=== PATIENT | female | born 1965 | race Caucasian/White ===

== ENCOUNTER → 2020-10-02 08:22 | Outpatient (BNVA) | payer OTHER, SELFPAY | PROVIDERS: Visit Provider Specialist | DX: G35 Multiple sclerosis (principal); F17.210 Nicotine dependence, cigarettes, uncomplicated | CPT/HCPCS: 99214 ==

== ENCOUNTER 2020-10-04 06:47 | Emergency (ER) | payer OTHER, SELFPAY ==
[2020-10-04 06:59] VITALS: BP 154/93; PULSE 78; RESP 18; TEMP 36.7; O2SAT 98; BMI 22.0
[2020-10-04 07:04] VITALS: BP 162/93; PULSE 78; RESP 18; O2SAT 98
--- NOTE | 2020-10-04 07:06 | W.ED.PSYCH ---
HPI - Psych General: Chief Complaint: Extremity Injury, Lower Stated Complaint: R FOOT/TOE INJURY Time Seen by Provider: 10/04/20 07:23 Course Vital Signs: Vital signs: Vital Signs Temperature 98.0 F 10/04/20 06:59 Pulse Rate 78 10/04/20 07:04 Respiratory Rate 18 10/04/20 07:04 Blood Pressure 162/93 10/04/20 07:04 Pulse Oximetry 98 10/04/20 07:04 Discharge Plan Discharge Prescriptions: No Action Chantix 1 mg tablet 1 mg PO BID Qty: 56 RF: 3 metoprolol succinate 50 mg tablet extended release 24 hr 50 mg PO QDAY Qty: 90 RF: 3 modafinil 200 mg tablet 200 mg PO BID Qty: 60 RF: 5 Tecfidera 240 mg capsule,delayed release(DR/EC) 240 mg PO BID Qty: 180 RF: 3 Coding Level of Care Code ED Compositor Apprentice for Marie Edwards
--- NOTE | 2020-10-04 07:27 | ED_ITS ---
HPI - Extremity Problem General: Chief complaint: Extremity Injury, Lower Stated complaint: R FOOT/TOE INJURY Time Seen by Provider: 10/04/20 07:23 History of Present Illness: HPI Narrative: Patient is a 54-year-old female comes to the ED with an injury to right foot. Patient says on Thursday evening a wheelbarrow fell on her right foot great toe. She now has some pain and swelling as well. She also has blue nail, but denies any bleeding after injury or pain with nail bed. Patient rates her pain a 9 out of 10. Patient says at 4 AM this morning she took some tramadol and it helped her pain. She says she has been elevating and icing her foot as well. Associated symptoms: Deny chest pain, fever(s) or rash Review of Systems Const: Denies: fever(s), chills or fatigue Eyes: Denies: change in vision or eye discomfort ENMT: Denies: throat pain, odynophagia, nasal discharge or nasal congestion Card: Denies: chest pain, palpitations, edema, swelling of feet/ankles, dyspnea on exertion or orthopnea Resp: Denies: dyspnea, productive cough or non-productive cough GI: Denies: abdominal pain, nausea, vomiting, diarrhea, constipation or hematochezia : Denies: flank pain, dysuria or hematuria Musc: Reports: extremity pain (right foot great toe); Denies: neck pain, back pain or extremity swelling Skin/Breast: Denies: rash or new lesions Neuro: Denies: headache(s), numbness in extremities or weakness in extremities Physical Exam Const: COMMON NORMALS: no acute distress, patient oriented x3, healthy appearing and alert GENERAL APPEARANCE: cooperative and comfortable HENMT: COMMON NORMALS: normocephalic HEAD & SCALP: normocephalic MOUTH: Normal oral and palatal mucosa present THROAT: posterior oropharynx normal and uvula midline Neck/C-Spine: COMMON NORMALS: supple GENERAL: Yes normal visual inspection Resp: COMMON NORMALS: normal respiratory effort, No retractions, No use of accessory muscles and clear to auscultation bilaterally AUSCULTATION: clear to auscultation bilaterally Cardio: COMMON NORMALS: regular rate, regular rhythm, S1 normal heart sound present, S2 normal heart sound present, No gallops present (Cardio), No clicks present (Cardio), No murmurs present (Cardio) and Peripheral pulses 2+ throughout RATE: regular rate RHYTHM: regular rhythm HEART SOUNDS: S1 normal heart sound present and S2 normal heart sound present PERIPHERAL PULSES: Peripheral pulses 2+ throughout GI: COMMON NORMALS: Normal to inspection, nondistended, normoactive bowel sounds present, Soft to palpation, non-tender and no masses PALPATION: Yes Soft to palpation : COMMON NORMALS: Yes no CVA tenderness BLADDER/KIDNEY EXAM: Yes no CVA tenderness Back/Pelvis: COMMON NORMALS: no CVA tenderness Extremity: GENERAL: Yes normal exam except as noted RIGHT LOWER EXTREMITY: Yes foot & digits (Great toe) Right foot and digits: Yes inspection (Swelling of toe. Nail is blue but intact. ), Yes palpation (Tenderness to palpation over the middle phalanges.), Yes ROM (Limited due to pain) and Yes neurovascular exam (Intact) Neuro: COMMON NORMALS: patient oriented x3 and moves all extremities SENSORIUM/ORIENTATION: Yes alert Skin: GENERAL SKIN EXAM: dry skin Course Vital Signs: Vital signs: Vital Signs Temperature 16 F L 10/04/20 08:41 Pulse Rate 73 10/04/20 08:41 Respiratory Rate 16 10/04/20 08:41 Blood Pressure 129/73 10/04/20 08:41 Pulse Oximetry 98 10/04/20 08:41 MDM - Extremity (Nontraumatic) MDM Narrative: Medical decision making narrative: Patient is a 54-year-old female comes to the ED with right toe injury. Crush injury. The patient has bruising and swelling of right great toe. Nailbed is intact. X-ray of right great toe showed a nondisplaced distal phalange fracture of the first digit. Patient was put in a stiff soled shoe and given crutches. She was discharged with a written prescription for tramadol for pain. She is told to follow-up with her PCP in 7 to 10 days for reevaluation. Return ED precautions given. Patient understood and agree with plan. Imaging Data^: Xray Ortho: Attestation: I personally reviewed and interpreted this imaging study as follows: My impression: X-ray right foot?great toe-nondisplaced distal phalanges fracture of first digit. Radiologist's impression: [address] [place] [address] XRay Report Signed Patient: Nishi Smiley Unit #: [id number] : 1965 Age/Sex: 54 / F ADM Date: 10/04/20 Loc: ER Room/Bed: Attending Dr: Ordering Provider/Ordering MD: Khanh Johnson Date of Service: 10/04/20 Procedure(s): XR foot RT min 3V* [id number] Accession Number(s): [id number] Report Number: [id number] PROCEDURE INFORMATION: Exam: XR Right Foot Exam date and time: 10/04/2020 7:30 AM Age: 54 years old Clinical indication: Injury or trauma; Other: Crush injury; Blunt trauma and crushing; Injury date: 10/02/2020; Patient HX: PT had something heavy fall on right foot. C/O throbbing pain RT foot; RT great toe nail black. ; Additional info: Crush injury to 1st digit TECHNIQUE: Imaging protocol: XR Right foot. Views: 3 or more views. COMPARISON: No relevant prior studies available. FINDINGS: Bones/joints: Normal. Soft tissues: Normal. XR/XR foot RT min 3V* [id number] IMPRESSION: No acute findings. Dictated By: Wenceslao Jane Signed By: Wenceslao Jane Signed Date/Time: 10/04/20811 DD/ 08 Discharge Plan Discharge Patient Disposition: Home Clinical Impression: Fracture of distal phalanx of great toe Qualifiers: Encounter type: initial encounter Fracture type: closed Fracture alignment: nondisplaced Laterality: right Qualified Code(s): S92.424A - Nondisplaced fracture of distal phalanx of right great toe, initial encounter for closed fracture Condition: Stable Prescriptions: No Action Chantix 1 mg tablet 1 mg PO BID Qty: 56 RF: 3 metoprolol succinate 50 mg tablet extended release 24 hr 50 mg PO QDAY Qty: 90 RF: 3 modafinil 200 mg tablet 200 mg PO BID Qty: 60 RF: 5 Tecfidera 240 mg capsule,delayed release(DR/EC) 240 mg PO BID Qty: 180 RF: 3 Discharge Orders: Discharge ED (Routine); Ordered 10/04/20 Ordered By: Khanh Johnson Discharge Diet: Regular Discharge Activity: Limit activity as instructed and Use walker/crutches as instructed Patient Instructions: Tramadol (By mouth), Fractures - Phalanx (Toe) Activity Restrictions/Additional Instructions: Follow-up with medical provider as directed in 7 to 10 days for reevaluation. Wear stiff sole shoe when ambulating you can use crutches to help with ambulation as well. Rest ice and elevate right foot. Take medications as prescribed. Return to the ER or your medical provider if condition worsens. Please read and understand discharge instructions. If any questions, please ask. Coding Level of Care Code ED Certified Flex Endoscope Reprocessor for Binhg Fwd Exam Comprehensive
[2020-10-04 08:04] VITALS: BP 129/82; PULSE 62; RESP 16; O2SAT 96
[2020-10-04 08:41] VITALS: BP 129/73; PULSE 73; RESP 16; TEMP -8.8; TEMP 16; O2SAT 98
== END 2020-10-04 08:37 | disposition home or self-care (01) ==
PROVIDERS: Emergency Provider Physician Assistant
DX: S92.424A Nondisplaced fracture of distal phalanx of right great toe, initial encounter for closed fracture (principal); W20.8XXA Other cause of strike by thrown, projected or falling object, initial encounter
CPT/HCPCS: 73630; 99283; E0114

== ENCOUNTER 2020-10-17 10:39 | Outpatient (CLI) | payer OTHER, SELFPAY ==
--- NOTE | 2020-10-17 11:00 | MR_ITS ---
WS: [id number] MRI HEAD WITH CONTRAST TECHNIQUE: Sagittal T1, T2 axial, T2 axial FLAIR, axial susceptibility weighted imaging, axial diffus ion weighted images, and coronal T2 images were obtained. Pre and post-T1 axial and post T1 coronal i mages. ADC and FSPGR images. CLINICAL INFORMATION: G35 - Multiple sclerosis COMPARISON: MRI 7 . Additional prior MRIs 2017, 2012, 2011, 2008. FINDINGS: No evidence of restricted diffusion to suggest acute ischemia. Ventricular system and basal cisterns are patent. Moderate patchy supratentorial white matter changes consistent with history of demyelinat ing disease. Number and distribution of lesions is stable since 2019. No evidence of disease progress ion. No significant infratentorial disease. Mild T1 hypointense lesion load. No abnormal gadolinium enhancement to indicate active disease. No en hancing lesions. Mild parenchymal volume loss is stable. No significant corpus callosal atrophy. Mini mal low-lying cerebellar tonsils. Normal fourth ventricle. Normal dural venous sinuses. Normal optic chiasm and pituitary infundibulum. Normal cavernous sinuses and Meckel's cave. MR/MR head wo/w con [id number] IMPRESSION: 1. No significant changes compared to 2019. 2. Moderate patchy supratentorial white matter changes consistent with demyeli nating disease. No evidence of new or progressed disease. 3. No enhancing lesions to indicate active disease. 4. Mild T1 hypointense lesion load. 5. Mild parenchymal volume loss. No significant corpus callosum atrophy. 6. Minimal low-lying cerebellar tonsils. Normal fourth ventricle.
[2020-10-17] MEDS: gadobenate dimeglumine 20 mL vial IV (11:42)
== END 2020-10-17 10:40 | disposition home or self-care (01) ==
PROVIDERS: Visit Provider Specialist
DX: G35 Multiple sclerosis (principal)
CPT/HCPCS: 70553; A9577

== ENCOUNTER → 2023-02-23 15:32 | Outpatient (BNVA) | payer OTHER, SELFPAY | PROVIDERS: Referring Provider Specialist; Visit Provider Podiatrist Foot & Ankle Surgery | DX: S86.012A Strain of left Achilles tendon, initial encounter; X50.9XXA Other and unspecified overexertion or strenuous movements or postures, initial encounter; M76.62 Achilles tendinitis, left leg | CPT/HCPCS: 73610 ==

== ENCOUNTER 2023-02-26 11:05 | Outpatient (CLI) | payer OTHER, SELFPAY | END 2023-02-26 11:06 | disposition home or self-care (01) | LOC: SPT 11:06 | PROVIDERS: Visit Provider Podiatrist Foot & Ankle Surgery | DX: Z46.89 Encounter for fitting and adjustment of other specified devices (principal); S99.919D Unspecified injury of unspecified ankle, subsequent encounter; X58.XXXD Exposure to other specified factors, subsequent encounter | CPT/HCPCS: L4361 ==

== ENCOUNTER 2023-03-04 08:02 | Outpatient (CLI) | payer OTHER, SELFPAY ==
[2023-03-04 08:17] LABS: Basophils # 0.1 10^3/uL (0.0-0.1); Basophils % 0.6 %; Eosinophils # 0.3 10^3/uL (0.0-0.8); Eosinophils % 3.6 %; Hematocrit 41.2 % (36-47); Lymphocytes # 2.8 10^3/uL (0.8-4.8); Lymphocytes % 35.4 %; Mean Corpuscular HGB Conc 32.5 g/dL (30-55); Mean Corpuscular Hemoglobin 30.4 pg (27-33); Mean Corpuscular Volume 93.4 fl (85-98); Mean Platelet Volume 10.4 fL (7.4-10.4); Monocytes # 0.5 10^3/uL (0.2-0.9); Neutrophils # 4.28 10^3/uL (1.8-7.7); Neutrophils % 53.9 %; Nucleated Red Blood Cells % 0 %; Platelet Count 252 10^3/cmm (157-399); Red Blood Count 4.41 10^6/uL (3.85-5.65); Red Cell Distribution Width 14.6 % (12.1-15.1); White Blood Count 7.96 10^3/uL (3.29-11.43)
[2023-03-04 08:48] LABS: Alanine Aminotransferase 21 U/L (0-33); Albumin Level 4.5 g/dL (3.5-5.2); Alkaline Phosphatase 129 U/L (35-105); Anion Gap 14.4 (5-19); Aspartate Amino Transferase 17 U/L (0-32); Blood Urea Nitrogen 16 mg/dL (6-20); Calcium 9.9 mg/dL (8.5-10.5); Carbon Dioxide 28 mmol/L (22-29); Chloride 100 mmol/L (98-107); Globulin 3.2 g/dL (1.3-4.6); Glomerular Filtration Rate 85.6 mL/min (90-130); Glucose 125 mg/dL (65-115); Osmolality Calculated 289 mOsm/kg (285-295); Potassium 4.4 mmol/L (3.5-5.1); Sodium 138 mmol/L (136-145); Thyroid Stimulating Hormone 3.19 uIU/mL (0.27-4.20); Total Bilirubin 0.2 mg/dL (0.15-1.2); Total Protein 7.7 g/dL (6.6-8.7)
== END 2023-03-04 08:03 | disposition home or self-care (01) ==
PROVIDERS: Visit Provider Specialist
DX: G47.419 Narcolepsy without cataplexy (principal); F17.200 Nicotine dependence, unspecified, uncomplicated; G35 Multiple sclerosis
CPT/HCPCS: 36415; 80053; 84443; 85025

== ENCOUNTER 2023-03-18 07:01 | Outpatient (CLI) | payer OTHER, SELFPAY ==
--- NOTE | 2023-03-18 07:15 | MR_ITS ---
WS: [id number] EXAMINATION: MR ankle LT wo con* [id number] ORDER DATE: 03/18/2023 7:13 AM COMPARISON: None. HISTORY: Achilles tendon tear CONTRAST: None. TECHNIQUE: Axial proton density fat sat, axial T1, sagittal proton density, sagittal STIR, coronal T2 fat sat, and coronal T1 sequences performed. After contrast, axial T1 fat sat, coronal T1 fat sat, and sagittal T1 fat sat were performed. FINDINGS: Diffuse fusiform enlargement of the mid Achilles tendon compatible with tendinopathy. Small amount of surrounding fluid or edema compatible with peritendinitis. Tiny interstitial tear involving the dors al Achilles tendon extending over approximately 6 mm with slight irregularity of the overlying tendon . Achilles insertion is normal in appearance. Normal bone marrow signal in the calcaneus. Normal talar dome. Normal medial and lateral malleolus. A TF appears intact. Deltoid ligament appears intact. Small joint effusion. Normal peroneal tendon sheath. The extensor and flexor compartment tendons are normal in appearance. Normal plantar fascia. Base of the fifth metatarsal is normal. Normal cuboid. IMPRESSION: 1. Diffuse fusiform enlargement of the mid Achilles tendon compatible with tendinopathy. Surrounding fluid and edema compatible with peritendinitis. 2. Tiny interstitial tear involving the dorsal Achilles tendon extending over approximately 6 mm wit h slight irregularity involving the dorsal tendon surface. 3. Normal Achilles insertion. 4. No other acute findings.
== END 2023-03-18 07:02 | disposition home or self-care (01) ==
LOC: RAD 07:01
PROVIDERS: Visit Provider Podiatrist Foot & Ankle Surgery
DX: S86.019A Strain of unspecified Achilles tendon, initial encounter (principal); X58.XXXA Exposure to other specified factors, initial encounter; M76.62 Achilles tendinitis, left leg
CPT/HCPCS: 73721